=== PATIENT | male | born 1995 | race Caucasian/White ===

== ENCOUNTER 2016-08-11 10:30 | Outpatient (CLI) ==
--- NOTE | 2016-08-11 10:53 | DI ---
EXAM: Radiographs, scoliosis HISTORY: Scoliosis. COMPARISON: 08/07/2015. TECHNIQUE: Frontal views of the thoracolumbar spine. FINDINGS/IMPRESSION: There is approximately 47 degrees right convex curvature centered at T8 when measured from the super ior endplate of T5 to the inferior endplate of T11. There is approximately 44 degrees left convex c urvature centered near L1-2 when measured from the superior endplate of T10 to the inferior endplate of L3. These findings are not significantly changed.
== END 2016-08-11 10:31 | disposition home or self-care (01) ==
LOC: RAD 10:30
PROVIDERS: ATTEND Family Medicine
DX: M41.34 Thoracogenic scoliosis, thoracic region (principal)
CPT/HCPCS: 72082

== ENCOUNTER 2017-10-29 14:28 | Outpatient (CLI) ==
--- NOTE | 2017-10-29 15:46 | DI ---
EXAM: Single AP view of the spine HISTORY: Scoliosis. COMPARISON: Scoliosis series 08/11/2016 and 08/07/2015 FINDINGS: The there is rightward scoliosis of the thoracic spine with an angle of approximately 46 de grees. This is centered at approximately T8. This is relatively unchanged from prior examination. There is leftward curvature of the lumbar spine with measured curvature of 48 degrees. This is minim ally changed from prior and may be due to positioning or differences in technique. IMPRESSION: Unchanged scoliosis of the thoracic and lumbar spine.
== END 2017-10-29 14:29 | disposition home or self-care (01) ==
LOC: RAD 14:28
PROVIDERS: ATTEND Family Medicine
DX: M41.115 Juvenile idiopathic scoliosis, thoracolumbar region (principal)
CPT/HCPCS: 72082

== ENCOUNTER 2018-10-28 13:33 | Outpatient (CLI) ==
--- NOTE | 2018-10-28 14:05 | DI ---
EXAM: Two views of the spine for scoliosis evaluation. History: Scoliosis. Follow-up Comparison: Spine radiograph 10/29/2017 Findings: No fractures are identified. No significant interval change in the severe S-shaped scolio sis. Air distended stomach and a few air distended loops of transverse colon. Impression: No significant interval change in the severe S-shaped scoliosis.
== END 2018-10-28 13:34 | disposition home or self-care (01) ==
LOC: RAD 13:33
PROVIDERS: ATTEND Family Medicine
DX: M41.115 Juvenile idiopathic scoliosis, thoracolumbar region (principal)